=== PATIENT | male | born 1985 | race Caucasian/White ===

== ENCOUNTER 2018-07-25 08:25 | Inpatient (IN) | payer OTHER ==
[~2018-07-25] VITALS: Ht 190.5 cm; Wt 77.1 kg
--- NOTE | 2018-07-25 12:00 | NUR ---
Intake Note Client is a 33 year old male admitted to [facility] for withdrawal from alcohol. Client is a/o x 4, speech is soft and pressured, avoidant gaze, he presents with anxiety, agitation, restlessness. Client is fully ambulatory. Vitals T 98.4, P 60, RR 16, BP 139/91, pain 0/10, spO2 @ 98% on RA.
--- NOTE | 2018-07-25 12:25 | NUR ---
Admissions Note 33 year old male admitted to [facility] for withdrawal from alcohol. Client is oriented to unit, educated about protocols and how to work TV and call light in his room. Weight: 170 pounds. Height: 6'3" Client report having a PCP, but can't recall name. Denies any past medical history. Past Surgical hx: R shoulder and L finger aaron (2012). CIWA 21 Substance use Alcohol started to drink at age 17, and slowly increasing, until he became fully dependent at age 23. For the last 3 months he consumes 2.5 - 3 pints of vodka, last used 07/24/18 @ 0600. Client appears anxious, clammy skin. Bilateral lung clear on auscultation, abdomen soft, non-tender, no edema noted. Client presents symptoms of withdrawal, anxiety, irritability, agitation, flushed facial skin, nausea, restless legs, and difficulty concentrating. Client has allergy to banana and avocado, regular diet, full code ordered. Client denies any history of seizures., He declines PNA and FLU vaccine, stating, "I think I will get sicker." He gives verbal consent for HIV. Client states that he lives with his mom He reports history of three prior treatments. Last being at [facility] in [place] for 2 weeks. His longest period of sobriety is for 89 months from December 2017 to March 2018. Client stated the reason why he relapses, "I just made bad desicion, without thinking of the consequences." When asked client how this treatment will be different he stated, "I don't know." Dr. Watson notified of client being in the unit. Urine was collected. All safety measures instituted. [place] precaution. Call light within reach. Will continue to monitor.
[2018-07-25 12:47] LABS: *AMPHETAMINE, URINE NEGATIVE (NEGATIVE); *BARBITURATE, URINE NEGATIVE (NEGATIVE); *CANNABINOID, URINE NEGATIVE (NEGATIVE); *COCCAINE, URINE NEGATIVE (NEGATIVE); *OPIATE, URINE NEGATIVE (NEGATIVE); *PHENCYCLIDINE SCREEN,URINE NEGATIVE (NEGATIVE)
[2018-07-25] MEDS ORDERED: LORAZEPAM 2 MG/1 ML VIAL IM PRN (13:15)
[2018-07-25] MEDS ORDERED: DIAZEPAM 10 MG TABLET PO PRN ×2 (13:15)
[2018-07-25] MEDS ORDERED: CLONIDINE HCL 0.1 MG TABLET PO PRN (13:15)
[2018-07-25] MEDS ORDERED: ONDANSETRON 4 MG/2 ML VIAL IM PRN (13:15)
[2018-07-25] MEDS ORDERED: ONDANSETRON ODT 4 MG TAB.RAPDIS SL PRN (13:15)
[2018-07-25] MEDS ORDERED: IBUPROFEN 600 MG TABLET PO PRN (13:15)
[2018-07-25] MEDS ORDERED: THIAMINE HCL 200 MG/2 ML VIAL IM ONE (13:15)
[2018-07-25] MEDS ORDERED: 3 DAY TAPER OF VALIUM-SERENITY PROTOCOL PO PRN (13:15)
[2018-07-25] MEDS ORDERED: ACETAMINOPHEN 325 MG TABLET PO PRN (13:15)
[2018-07-25] MEDS ORDERED: DIAZEPAM 5 MG TABLET PO PRN (13:15)
--- NOTE | 2018-07-25 13:31 | NUR ---
CIWA 19 & PRN Valium 20mg PO administered. Client presents with abdominal pain, muscle aches, intermittent nausea, clammy skin, sweats, flushed facial skin, headache, tremors, anxiety, irritability, restlessness, depressed, and difficulty concentrating. Call light within reach.
--- NOTE | 2018-07-25 14:31 | NUR ---
Reassess PRN Valium 20mg, client reports slight relief from anxiety, irritability. CIWA 12. Call light within reach.
[2018-07-25 15:27] LABS: BASOPHILS % (AUTO) 0.4 % (0.0-2.0); EOSINOPHILS % (AUTO) 0.7 % (0.0-7.0); HEMATOCRIT 45.6 % (36.7-47.1); HEMOGLOBIN 15.7 g/dL (12.5-16.3); LYMPHOCYTES # (AUTO) 0.7 K/uL (20.0-40.0); LYMPHOCYTES % (AUTO) 17.2 % (20.5-51.5); MEAN CORPUSCULAR HGB CONC 35 g/dL (32.5-36.3); MONOCYTES # (AUTO) 0.5 K/uL (2.0-10.0); MONOCYTES % (AUTO) 12.2 % (0.0-11.0); NEUTROPHILS % (AUTO) 69.5 % (38.5-71.5); PLATELET COUNT (AUTO) 138 K/uL (152-348); RED BLOOD CELL COUNT(AUTO) 5.07 MIL/uL (4.06-5.63); WHITE BLOOD COUNT (AUTO) 4.3 K/uL (3.6-10.2)
[2018-07-25 15:37] LABS: ETHANOL < 3 MG/DL (0-0)
[2018-07-25 15:42] LABS: ALANINE AMINOTRANSFERASE 88 U/L (16-63); ALKALINE PHOSPHATASE 84 U/L (50-136); ASPARTATE AMINOTRANSFERASE 54 U/L (15-37); BILIRUBIN,TOTAL 2.4 mg/dL (0.2-1.0); CARBON DIOXIDE 26 mmol/L (21-32); CHLORIDE 105 mmol/L (98-107); CREATININE 1.1 mg/dL (0.6-1.3); GLUCOSE 129 mg/dL (74-106); MAGNESIUM 2.1 mg/dL (1.8-2.4); TOTAL PROTEIN, SERUM 6.5 g/dL (6.4-8.2); UREA NITROGEN, BLOOD 7 mg/dL (7-18)
[2018-07-25 16:30] VITALS: BP 131/84
[2018-07-25] MEDS: DIAZEPAM 5 MG TABLET PO SCH ×2 (16:35→20:15)
--- NOTE | 2018-07-25 16:35 | NUR ---
CIWA 19 & Motrin 600mg PO administered for ROJAS Client presents with flushed facial skin, tremors, sweats, anxiety, irritability, and difficulty concentrating. Client reports feeling anxious, abdominal cramps, muscle aches, headache 6/10, restlessness, nausea, clammy skin, and fatigue. Schedule Valium 5mg PO administered. Call light within reach.
--- NOTE | 2018-07-25 17:35 | NUR ---
Reassess PRN Motrin 600mg, client reports slight relief from ROJAS 2/10, but tolerable. Call light within reach.
--- NOTE | 2018-07-25 19:30 | NUR ---
START OF SHIFT Received 33 year old male patient admitted on 07/25/18 for ETOH withdrawal. Pt is alert and oriented x4. Pt noted with flushed face, mild tremors, anxiety, restlessness, and clammy skin. Pt is receiving a 3 day Valium taper and tolerating well. Per endorsement, he received PRN Valium 20 mg. Last CIWA:19 at 1600. Breathing is even and unlabored, safety measures in place. Will monitor.
--- NOTE | 2018-07-25 19:30 | NUR ---
END OF SHIFT Endorse client to incoming nurse, client is in room, a/o x 4, client reports nausea, clammy skin, sweats, flushed facial skin, tremors, anxiety, and irritability. Last CIWA 19 @ 1700. Client is on first of 3 day Valium taper. PRN meds administered. Side rails x 2 up/padded. Seizure precautions. Call light within reach.
[2018-07-25 20:00] VITALS: BP 132/86
--- NOTE | 2018-07-25 20:00 | NUR ---
CIWA Pt noted with flushed face, mild tremors, anxiety, restlessness, and clammy skin. CIWA:13 prior to medication administration. Will monitor.
[2018-07-26] VITALS: BP 128/78
--- NOTE | 2018-07-26 | NUR ---
CIWA DEFERRED Pt is lying in bed with eyes closed, noted to be asleep. Breathing is even and unlabored, safety measures in place. Will monitor.
[2018-07-26 04:00] VITALS: BP 125/82
--- NOTE | 2018-07-26 04:00 | NUR ---
CIWA DEFERRED Pt is lying in bed with eyes closed noted to be asleep. Breathing even and unlabored, safety measures in place. Will monitor.
--- NOTE | 2018-07-26 07:06 | NUR ---
END OF SHIFT Pt is a 33 year old male patient admitted on 07/25/18 for ETOH withdrawal. Pt is alert and oriented x4. Pt noted with flushed face, mild tremors, anxiety, restlessness, and clammy skin. Pt continues on a 3 day Valium taper and tolerating well. Per endorsement, he received PRN Valium 20 mg. Last CIWA:19 at 1999. Breathing is even and unlabored, safety measures in place. Will endorse to AM shift.
--- NOTE | 2018-07-26 07:15 | NUR ---
Start of Shift Note Pt. is a 33 y/o male admitted for the medically managed withdrawal from ETOH. Pt. was placed on a 3 day valium taper to manage withdrawal symptoms. Endorse from previous shift pt. presented with flushed facial skin, tremors, anxiety, restlessness and diaphoresis. Received pt. in room. Pt. laying in bed with eyes closed. No signs of distress noted. Safety measures in place. Will continue to monitor pt.'s behavior for safety.
[2018-07-26 08:00] VITALS: BP 117/74
--- NOTE | 2018-07-26 08:00 | NUR ---
CIWA Assessment CIWA of 11. Pt. in room presenting with anxiety, tremors, diaphoresis, headache, and agitation. Will give medications as ordered. Will continue to monitor pt.'s behavior for safety.
[2018-07-26] MEDS: FOLIC ACID 1 MG TABLET PO SCH (08:32)
[2018-07-26] MEDS: DIAZEPAM 5 MG TABLET PO SCH ×2 (08:32→20:35)
[2018-07-26] MEDS: MULTIVITAMINS,THERAPEUTIC TABLET PO SCH (08:32)
[2018-07-26] MEDS: THIAMINE HCL 100 MG TABLET PO SCH (08:32)
[2018-07-26] MEDS ORDERED: TUBERCULIN,PURIF.PROT.DERIV. 5 TU/0.1 ML TEST ID ONE (09:00)
[2018-07-26 09:12] LABS: HEPATITIS B SURFACE AG Negative (Negative)
--- NOTE | 2018-07-26 09:37 | NUR ---
Therapist prompted client to attend group therapy.
[2018-07-26 12:00] VITALS: BP 139/80
--- NOTE | 2018-07-26 12:00 | NUR ---
CIWA Assessment CIWA of 11. Pt. in room presenting with anxiety, tremors, diaphoresis, and agitation. Pt. compliant with medication regiment and treatment plan. Will continue to monitor pt.'s behavior for safety.
[2018-07-26 16:30] VITALS: BP 132/74
--- NOTE | 2018-07-26 19:05 | NUR ---
START OF SHIFT NOTE: Presented patient is a 33 year old male admitted today for Alcohol (Vodka) withdrawal and started today ordered 3 day Valium taper, which tolerated well. Withdrawal symptoms will be motoring closely. Patient recently resting on his bed, and watching TV. He is alert and oriented x4: Person, time, situation, and place. His mood anxious, and flat affect. Patient reports allergy to avocado and banana, Regular diet, hi is on Full Code, Fall and Seizures Precautions. Patient denies seizures and fall history. Patient denies history of SI/HI. PMH: Anxiety, Depression, Right Shoulder and Left Finger Surgery in 2011. Last CIWA=11 at 1600: Throughout the day shift patient presented with anxiety, agitation, nervousness, bilateral tremors, c/o very mild lightheaded, restlessness, sweating, and fatigue. VSWNL. Respirations are unlabored and even. ULISSES. Bowel Sounds presented in all four quadrants. Abdomen is soft and non-tender. Skin is intact, warm, and dry to touch. PRN Valium 10 mg PO administrated for CIWA=16 at 1331, PRN Motrin 500 mg PO administered for pain at 1635, as ordered, and were effective, per day shift nurse report. Encouraged to intake fluids as tolerated. Encouraged to attend groups activities. Safe and calm environment provided. All needs met. Safety measures in place: Call light within reach, bed is in lowest position, and locked, padded bedrails up bilaterally. Endorsed by outgoing day shift nurse. Will continue to monitor.
--- NOTE | 2018-07-26 19:05 | NUR ---
End of Shift Note Pt. is a 33 y/o male admitted for the medically managed withdrawal from ETOH. Pt. was placed on a 3 day valium taper to manage withdrawal symptoms. Throughout shift pt. presented with flushed facial skin, tremors, anxiety, restlessness and diaphoresis. No PRN's given to manage withdrawal symptoms. Safety measures in place. Will endorse pt.'s care to oncoming shift.
[2018-07-26 20:00] VITALS: BP 121/76
--- NOTE | 2018-07-26 20:00 | NUR ---
CIWA ASSESSMENT CIWA=11: Patient presented with following withdrawal symptoms, such as anxiety, agitation, nervousness, bilateral tremors, restlessness, sweating, and fatigue. Scheduled medications will be administrated, as ordered. Encouraged to intake fluids as tolerated. Safe and calm environment provided. All needs met. Safety measures in place: Call light within reach, bed is in lowest position, and locked, padded bedrails up bilaterally. Will continue to monitor.
--- NOTE | 2018-07-27 | NUR ---
VS REFUSED, CIWA DEFERRED VS refused and CIWA deferred at 0000 due patient sleeping. Respirations are unlabored and even. RR:14. Will be to assess while patient will awake. Safe and calm environment provided. All needs met. Safety measures in place: Call light within reach, bed is in lowest position, and locked, padded bedrails up bilaterally. Will continue to monitor.
--- NOTE | 2018-07-27 04:00 | NUR ---
VS REFUSED, CIWA DEFERRED VS refused and CIWA deferred at 0400 due patient sleeping. Respirations are unlabored and even. RR:12. Will be to assess while patient will awake. Safe and calm environment provided. All needs met. Safety measures in place: Call light within reach, bed is in lowest position, and locked, padded bedrails up bilaterally. Will continue to monitor.
--- NOTE | 2018-07-27 07:17 | NUR ---
END OF SHIFT NOTE: This report given for patient, a 33 year old male, second day continues 3 day Valium taper ordered for withdrawal from Alcohol (Vodka), and tolerated well. The patient is alert and oriented x4: Person, time, situation, and place. The most recent CIWA=11 at 2000: with following withdrawal symptoms, such as anxiety, agitation, nervousness, bilateral tremors, restlessness, sweating, and fatigue. Respirations are unlabored and even. Skin is remains intact, warm, and dry to touch. No PRN medications was administered during my shift. Education provided for relaxation techniques. Encouraged to intake fluids as tolerated. Encouraged to attend groups activities. Patient slept for 5 hours, intake 1,294 ml, voided x1. Safe and calm environment provided. All needs met. Safety measures in place: Call light within reach, bed is in lowest position, and locked, padded bedrails up bilaterally. Endorsed to day shift nurse.
[2018-07-27 08:00] VITALS: BP 119/78
--- NOTE | 2018-07-27 08:00 | NUR ---
Start of Shift Notes/CIWA Assessment: Received endorsement from night nurse. Patient is a 33 year old male admitted for ETOH withdrawal who was placed on a 3-day Valium taper as ordered. No adverse reactions noted. Patient is on his 3rd day of his taper today. Per night report, patient was not given any PRNs. Last CIWA 11. Slept for a total of 5 hours. Upon seeing patient, he appears anxious, alert and oriented x 4. Affect is flat with worried facial expression. Poor eye contact at times and appears to self isolate in his room. He is noted with gross tremors to BUE and mild sweats. CIWA 14. Educated patient on his current plan of care for the day and his medication regimen. Encouraged oral fluid intake and encouraged group participation to learn new skills to prevent relapse. All needs met and attended. Will continue to monitor closely.
[2018-07-27 08:11] LABS: BILIRUBIN,DIRECT 0.2 mg/dL (0.0-0.2); BILIRUBIN,TOTAL 1.1 mg/dL (0.2-1.0); TOTAL PROTEIN, SERUM 6.3 g/dL (6.4-8.2)
[2018-07-27] MEDS: MULTIVITAMINS,THERAPEUTIC TABLET PO SCH (08:40)
[2018-07-27] MEDS: THIAMINE HCL 100 MG TABLET PO SCH (08:40)
[2018-07-27] MEDS: FOLIC ACID 1 MG TABLET PO SCH (08:40)
[2018-07-27] MEDS ORDERED: DIAZEPAM 5 MG TABLET PO SCH (09:00)
[2018-07-27 12:00] VITALS: BP 132/60
--- NOTE | 2018-07-27 12:08 | NUR ---
CIWA Assessment: CIWA 12, patient continues to present with s/s of withdrawal m/b gross tremors, anxiety, agitation, intermittent perspiration, facial flushing, difficulty concentrating and fatigue. Offered PRNs. Will continue to monitor.
[2018-07-27] MEDS ORDERED: CLON0.1T14 PO (13:19)
[2018-07-27 16:00] VITALS: BP 136/85
--- NOTE | 2018-07-27 16:16 | NUR ---
CIWA Assessment: CIWA 11, patient continues to present with s/s of withdrawal m/b gross tremors, anxiety, mild agitation, intermittent perspiration, facial flushing, and fatigue. Offered PRNs. Will continue to monitor.
--- NOTE | 2018-07-27 19:02 | NUR ---
End of Shift Notes: Patient completed his 3-day Valium taper as ordered to manage symptoms related to ETOH withdrawal. With discharge plans tomorrow. VS monitored closely. NO significant abnormalities noted. Withdrawal symptoms were closely monitored. Initial CIWA 14, patient presented with gross tremors, facial flushing, worried facial expression, anxiety, agitation, fatigue, self isolation and difficulty concentrating. Last CIWA 11. Per patient, Valium has been effective in reducing his withdrawal symptoms. Requires encouragement to attend group and activities due to episodes of self isolation. Appetite good. All needs met and attended. Will continue to monitor.
--- NOTE | 2018-07-27 19:02 | NUR ---
START OF SHIFT NOTE: The patient is a 33 year old male completed today 3 Day Valium taper ordered for alcohol (Vodka) withdrawal, which tolerated well. Patient remains compliant with treatment, medications, and diet regimen. Patient scheduled for discharge tomorrow at 0930. The most recent CIWA=11: Throughout the day shift patient presented with the following withdrawal symptoms such as anxiety, agitation, irritability, nervousness, tremors, restlessness, and fatigue. Withdrawal symptoms will be closely monitoring. Skin remains intact, warm, and dry to touch. No PRN medications administered during day shift per outgoing day shift nurse report. Encouraged to intake fluids as tolerated. Encouraged to attend group activities. Safe and calm environment provided. All needs met. Safety measures in place: Call light within reach, bed is in lowest position, and locked, padded bed rails up bilaterally. Endorsed by day shift nurse. Will continue to monitor.
[2018-07-27 20:00] VITALS: BP 119/69
--- NOTE | 2018-07-27 20:00 | NUR ---
CIWA ASSESSMENT CIWA=12: The patient noted with the following withdrawal symptoms such as anxiety, agitation, irritability, nervousness, tremors, restlessness, and fatigue. VSWNL. PRN Clonidine 0.1 mg PO will be administrating for anxiety as ordered. Withdrawal symptoms will be closely monitoring. Encouraged to intake fluids as tolerated. Safe and calm environment provided. All needs met. Safety measures in place: Call light within reach, bed is in lowest position, and locked, padded bed rails up bilaterally. Will continue to monitor.
--- NOTE | 2018-07-27 20:38 | NUR ---
PRN CLONIDINE PO ADMINISTRATION: PRN Clonidine 0.1 mg PO administered at 2037 for anxiety, as ordered. Patient tolerated well. Encouraged to intake fluids as tolerated. After one hour will be to reassess. Safe and calm environment provided. All needs met. Safety measures in place: Call light within reach, bed is in lowest position, and locked, padded bedrails up bilaterally. Will continue to monitor.
--- NOTE | 2018-07-27 21:38 | NUR ---
PRN RE-ASSESSMENT The patient is sleeping. RR:14. Respirations are unlabored and even. PRN Clonidine 0.1 mg PO administered at 2037 for anxiety was effective. Safe and calm environment provided. All needs met. Safety measures in place: Call light within reach, bed is in lowest position, and locked, padded bedrails up bilaterally. Will continue to monitor.
--- NOTE | 2018-07-28 | NUR ---
VS REFUSED, CIWA DEFERRED VS refused and CIWA deferred at 0000 due patient sleeping. Respirations are unlabored and even. RR:15. Assessment will be done and COWS/CIWA scored while patient will awake. Safe and calm environment provided. All needs met. Safety measures in place: Call light within reach, bed is in lowest position, and locked, padded bedrails up bilaterally. Will continue to monitor.
--- NOTE | 2018-07-28 04:00 | NUR ---
VS REFUSED, CIWA DEFERRED VS refused, CIWA deferred at 0400 due patient sleeping. Respirations are unlabored and even. RR:16. Assessment will be done and CIWA scored while patient will awake. Safe and calm environment provided. All needs met. Safety measures in place: Call light within reach, bed is in lowest position, and locked, padded bedrails up bilaterally. Will continue to monitor.
--- NOTE | 2018-07-28 07:06 | NUR ---
END OF SHIFT NOTE: Endorsed patient, 33 year old male, presented for Alcohol (Vodka) withdrawal, completed ordered 3 day Valium taper, which tolerated well. Withdrawal symptoms was closely monitored. Patient scheduled for discharge today at 929. Latest CIWA=12 at 1999: Patient experienced the following withdrawal symptoms such as anxiety, agitation, barely sweating, body aches, irritability, nervousness, tremors, restlessness, and fatigue. Patient attended group activities. VSWNL. Respirations are unlabored and even. Skin is remains intact, warm, and dry to touch. PRN Clonidine 0.1 mg PO administered at 2037 for anxiety was effective. Patient remains compliant with treatment, medication, and diet regimen. Encouraged to intake fluids as tolerated. Patient slept for 6 hours, intake 1,605 ml, voided x7, stool x3. Safe and calm environment provided. All needs met. Safety measures in place: Call light within reach, bed is in lowest position, and locked, padded bedrails up bilaterally. Endorsed to day shift nurse.
--- NOTE | 2018-07-28 07:36 | NUR ---
BEGINNING OF SHIFT Patient endorsement report received from nightclub manager nurse, all pertinent information was discussed. Patient completed 3 day Valium taper as ordered, is scheduled to be discharged this morning. Per nightclub manager patient slept for 6 hours. Received PRN: Clonidine. Last CIWA score of: 12. Patient educated regarding plan of care for the day and medication regimen, with good verbal understanding. Safety measures are in place. call light with in reach will continue to monitor.
[2018-07-28] MEDS: FOLIC ACID 1 MG TABLET PO SCH (08:24)
[2018-07-28] MEDS: THIAMINE HCL 100 MG TABLET PO SCH (08:24)
[2018-07-28] MEDS: MULTIVITAMINS,THERAPEUTIC TABLET PO SCH (08:24)
[2018-07-28 08:39] VITALS: BP 111/64
--- NOTE | 2018-07-28 09:45 | NUR ---
DISCHARGE Patient discharged off the unit at 0945, prior to discharge patient was educated and provided with teaching regarding all discharge instructions with good verbal understanding. Patient vital signs WNL. Last CIWA Score of: 5, all scheduled 0900 medications were administered. Patients discharge instructions were placed in personal duffel bag. Noted self motivated towards sobriety. Patient off the unit at 0945, in stable condition and in no apparent acute distress.
== END 2018-07-28 09:45 | disposition other institution (70) | DRG 895 ==
LOC: SRC 11:31
PROVIDERS: ADMIT Family Medicine Addiction Medicine; ATTEND Family Medicine Addiction Medicine
PROC: HZ2ZZZZ Detoxification Services for Substance Abuse Treatment (ICD-10-PCS; principal; 2018-07-25)
PROC: HZ41ZZZ Group Counseling for Substance Abuse Treatment, Behavioral (ICD-10-PCS; 2018-07-26)
PROC: HZ31ZZZ Individual Counseling for Substance Abuse Treatment, Behavioral (ICD-10-PCS; 2018-07-26)
DX: F10.230 Alcohol dependence with withdrawal, uncomplicated (principal); R17 Unspecified jaundice; Y90.0 Blood alcohol level of less than 20 mg/100 ml; Z81.1 Family history of alcohol abuse and dependence; Z81.3 Family history of other psychoactive substance abuse and dependence; R74.0 Nonspecific elevation of levels of transaminase and lactic acid dehydrogenase [LDH]; R74.8 Abnormal levels of other serum enzymes
CPT/HCPCS: 36415; 70030-TC; 80307; 83735; 85025; 86592; 86705; 86803; 87340; 87806; G0480; J3411